=== PATIENT | male | born 1980 | race Caucasian/White ===

== ENCOUNTER 2023-05-19 20:55 | Outpatient (OUT) | payer BC, SELFPAY | END 2023-05-19 20:56 | disposition home or self-care (01) | LOC: SLEEP 20:56 | PROVIDERS: PCP Psychiatry & Neurology Neurology; Visit Provider Psychiatry & Neurology Neurology | DX: G47.33 Obstructive sleep apnea (adult) (pediatric) (principal); G47.11 Idiopathic hypersomnia with long sleep time | CPT/HCPCS: 95810 ==

== ENCOUNTER 2023-06-23 20:51 | Outpatient (OUT) | payer BC, SELFPAY | END 2023-06-23 20:52 | disposition home or self-care (01) | LOC: SLEEP 20:51 | PROVIDERS: PCP Psychiatry & Neurology Neurology; Visit Provider Psychiatry & Neurology Neurology | DX: G47.33 Obstructive sleep apnea (adult) (pediatric) (principal); G47.11 Idiopathic hypersomnia with long sleep time | CPT/HCPCS: 95811 ==

== ENCOUNTER 2024-07-16 10:22 | Outpatient (OUT) | payer BC, SELFPAY ==
[2024-07-16 11:54] LABS: Alanine Aminotransferase 40 U/L (16-63); Aspartate Amino Transferase 18 U/L (15-37); Chol HDL Ratio 3.3; Cholesterol 181 mg/dL (<=200); HDL Cholesterol 55 mg/dL (40-60); LDL Cholesterol Calculated 114.2 mg/dL; Triglycerides 59 mg/dL (<=150); VLDL CHOLESTEROL 11.8 mg/dL
== END 2024-07-16 10:23 | disposition home or self-care (01) ==
LOC: LAB 10:23
PROVIDERS: PCP Psychiatry & Neurology Neurology; Visit Provider Internal Medicine Cardiovascular Disease
DX: Z00.00 Encounter for general adult medical examination without abnormal findings (principal)
CPT/HCPCS: 36415; 80061; 84450; 84460

== ENCOUNTER 2025-07-01 11:47 | Outpatient (OUT) | payer BC, SELFPAY ==
--- OUTSIDE RECORDS SUMMARY | 2025-07-01 11:50 | XMS_ITS | Clinical Summary ---
Author Organization [facility] Address [address] [place] [address] Care Team Providers Care Telecommunication Equipment Repairer Name Role Phone Shaikh KALEIGH Russell Primary Care Provider Allergies No known active allergies Medications dilTIAZem CD (Cardizem CD) 120 mg 24 hr capsuleIndications:P aroxysmal supraventricular tachycardia TAKE 1 CAPSULE BY MOUTH EVERY DAY DIRECTED 90 capsule 2 5 Active Active Problems Problem Noted Date Diagnosed Date Hyperlipidemia 07/09/2024 Essential hypertension 07/09/2024 Inadequate sleep hygiene 03/15/2024 Sleep deprivation 03/15/2024 Snoring 03/15/2024 Hypersomnia 03/12/2024 CHRISTOPHER (obstructive sleep apnea) 03/12/2024 PLMD (periodic limb movement disorder) 4 Unspecified atrial flutter 03/12/2024 Palpitations Assessment & Plan (10/18/2022 9:27 AM EST): -per event monitor he had possible x1 event of a-flutter -reviewing the results it did appear likely that it could be a-flutter vs atrial tachycardia -[id number] - 0 , he opted not to start AC despite discussing risks of stroke knowing he had possible arrhythmia -he is agreeable to restarting toprol XL 25mg daily -he will let us know if he would like an implantable loop -I will have him follow up with dr. perkins in 3 month to discuss loop vs EP study Family History Medical History Relation Name Comments Heart attack Father Relation Name Status Comments Father Social History Tobacco Use Types Packs/Day Years Used Date Smoking Tobacco: Never Smokeless Tobacco: Never Tobacco Cessation:Counseling Given: Not Answered [place] Safety & Environment Answer Date Rec orded Fear of Current or Ex-Partner Not on file Emotionally Abused Not on file 12/04/2023 Physically Abused Not on file 12/04/2023 Sexually Abused Not on file 12/04/2023 Physically or Sexually Abused Not on file Sex and Gender Information Value Date Recorded Sex Assigned at Male 06/16/2025 1:18 PM EDT Legal Sex Male 9:50 PM EDT Gender Identity Male 06/16/2025 1:18 PM EDT Sexual Orientation Heterosexual or Straight 01/2025 1:18 PM EDT Last Filed Vital Signs Vital Sign Reading Time Taken Comments Blood Pressure 122/78 07/09/2024 1:24 PM EDT Pulse 58 07/09/2024 1:24 PM EDT Temperature - - Respiratory Rate - - Oxygen Saturation 94% 07/09/2024 1:24 PM EDT Inhaled Oxygen Concentration - - Weight 80.3 kg (177 lb) 07/09/2024 1:24 PM EDT Height 165.1 cm (5' 5 ) 07/09/2024 1:24 PM EDT Body Mass Index 29.45 07/09/2024 1:24 PM EDT Plan of Treatment Upcoming Encounters Date Type Department Care Team (Late st Contact Info) Description 07/07/2025 2:00 PM EDT Office Visit [facility] [address] [place] [address] Shyanne Ward MD [address] [place] [address] Health Maintenance Due Date Last Done Comments Depression Screening 1993 Varicella Vaccines (1 of 2 - 13+ 2-dose series) 1994 Hepatitis B Vaccines (1 of 3 - 19+ 3-dose series) 2000 Adult Tetanus 2003 Influenza Vaccine (#1) 2025 Zoster Vaccines (1 of 2) 2031 HIB Vaccines Aged Out No longer eligi ble based on patient's age to complete this topic HPV Vaccines Aged Out No longer eligi ble based on patient's age to complete this topic IPV Vaccines Aged Out No longer eligi ble based on patient's age to complete this topic Meningococcal B Vaccine Aged Out No l onger eligible based on patient's age to complete this topic Meningococcal Vaccine Aged Out No milena ayde eligible based on patient's age to complete this topic Pneumococcal Vaccine: Pediat rics (0 to 5 Years) and At-Risk Patients (6 to 64 Years) Aged Out No longer eligible b ased on patient's age to complete this topic Rotavirus Vaccines Aged Out No longer eligible based on patient's age to complete this topic Care Teams Telecommunication Equipment Repairer Relationship Specialty Start Date End Date Shaikh Russell MD PCP - General Family Medicine 10/09/22
--- OUTSIDE RECORDS SUMMARY | 2025-07-01 11:52 | XMS_ITS | CCD ---
Author Organization [facility]iniSy[facility] Care Team Providers Care Allergy And Immunology Specialist Name Role Phone GRACE ROQUE Admitting Unavailable FAWWAD, CALLEJAS H Primary Care Unavailable JUDEGRACE Tomlinson Attending Unavailable JUDELENINGRACE Consulting Unavailable FAWWAD, CALLEJAS H Primary Care Unavailable FAWWAD, CALLEJAS H Admitting Unavailable FAWWAD, CALLEJAS H Attending Unavailable FAWWAD, CALLEJAS H Consulting Unavailable FAWWAD, CALLEJAS H Primary Care Unavailable FAWWAD, CALLEJAS H Admitting Unavailable FAWWAD, H Attending Unavailable FAWWAD, CALLEJAS H Consulting Unavailable FAWWAD, CALLEJAS H Primary Care Unavailable FAWWAD, CALLEJAS H Admitting Unavailable FAWWAD, CALLEJAS H Attending Unavailable FAWWAD, CALLEJAS H Primary Care Unavailable FAWWAD, CALLEJAS H Admitting Unavailable FAWWAD, CALLEJAS H Attending Unavailable FAWWAD, CALLEJAS H Consulting Unavailable Fawwad Shaikh FARRIS Primary Care Provider OVI FLORES Attending Unavailable JOSE MAK Attending Unavailable SOLA WARD Attending Unavailable TERRY GILMORE Attending Unavailable TERRY GILMORE Attending Unavailable Medications Current Medications Medication Drug Class(es) Dates Sig (Normalized) Sig (Original) atorvastatin 40 mg oral tablet (4 sources) HMG-CoA Reductase Inhibitor Start: 05-30-2023 End: 09-06-2024 take 1 tablet by mouth at bedtime atorvastatin (Lipitor) 40 MG tablet Take 40 mg by mouth at bedtime 05/30/2023 09/06/2024 Discontinued (Therapy completed) dilTIAZem (5 sources) Calcium Channel Tricia Start: 01-31-2024 Diltiazem Hcl Active MG PO January 31, 2024 12:00am take 1 capsule by mo uth once daily, then take 1 capsule by mouth every twenty-four hours dilTIAZem CD (Cardizem CD) 120 MG 24 hr capsule Take 120 mg by mouth Daily Active 24 hr metoprolol succinate 25 mg extended release oral tablet (4 sources) beta-Adrenergic Tricia Start: 05-30-2023 End: 09-06-2024 take 1 tablet by mouth once daily in the morning metoprolol succinate XL (Toprol-XL) 25 MG 24 hr tablet TAKE 1 TABLET BY MOUTH ONCE DAILY IN THE MORNING (do not crush or CHEW) 05/30/2023 09/06/2024 Discontinued (Therapy completed) Problems Active Problems Problem Classification Problem Date Documented Date Episodic/Chronic Cardiac dysrhythmias (6 sources) Atrial flutter; Translations: [Unspecified atrial flutter] Onset: 03-12-2024 03-12-2024 Chronic Disorders of lipid metabolism (6 sources) Mixed hyperlipidemia; Translations: [Hyperlipidemia, unspecified] Onset: 07-27-2022 Chronic Essential hypertension (2 sources) Essential (primary) hypertension; Translations: [Essential (primary) hypertension] Onset: 07-09-2024 Chronic Other lower respiratory disease (6 sources) Snoring; Translations: [Snoring] Onset: 03-15-2024 03-15-2024 Episodic Residual codes; unclassified (6 sources) Obstructive sleep apnea syndrome; Translations: [Obstructive sleep apnea (adult) (pediatric)] Onset: 03-12-2024 03-12-2024 Chronic Residual codes; unclassified (6 sources) Hypersomnia; Translations: [Hypersomnia, unspecified] Onset: 03-12-2024 03-12-2024 Chronic Residual codes; unclassified (6 sources) Periodic limb movement disorder; Translations: [Periodic limb movement disorder] Onset: 03-12-2024 03-12-2024 Chronic Residual codes; unclassified (6 sources) Inadequate sleep hygiene; Translations: [Inadequate sleep hygiene] Onset: 03-15-2024 03-15-2024 Episodic Unclassified (1 source) Supraventricular tachycardia, unspecified; Translations: [Supraventricular tachycardia, unspecified] Onset: 08-12-2023 Past or Other Problems Problem Classification Problem Date Documented Date Episodic/Chronic Cardiac dysrhythmias (6 sources) Palpitations; Translations: [PALPITATIONS] Onset: 12-18-2021 Episodic Diabetes mellitus without complication (4 sources) Hyperglycemia, unspecified; Translations: [HYPERGLYCEMIA UNSPECIFIED] Onset: 09-10-2021 Episodic Other lower respiratory disease (4 sources) Dyspnea, unspecified; Translations: [DYSPNEA UNSPECIFIED] Onset: 03-25-2022 Episodic Other screening for suspected conditions (not mental disorders or infectious disease) (1 source) Encounter for screening for lipoid disorders; Translations: [ENC SCREENING FOR LIPOID DISORDERS] Onset: 09-15-2021 Episodic Residual codes; unclassified (4 sources) Sleep deprivation; Translations: [Sleep deprivation] Onset: 03-15-2024 03-15-2024 Episodic Unclassified (1 source) Supraventricular tachycardia, unspecified; Translations: [Supraventricular tachycardia, unspecified] Onset: 08-12-2023 Results Test Name Value Interpretation Reference Range Facility 36on 08-05-2024 36 Regarding lipid pane l from 07/16/2024: MD Myesha Andrews MA LDL is mildly elevated but he has good HDL leg, I recommend to follow a better low-fat diet. I do not think he needs medication at this point. It is recommended to repeat fasting lipids in about 3 to 4 months. Spoke with patient and informed him of message per Dr. Ward. He will have repeat labs in 3-4 months. Order faxed to [facility] AND mailed to patient. Normal [facility] ALL LIPID PROFILE (FASTING)o n 07-16-2024 CHOL HDL RATIO 3.3 [facility] Comment on above: 3.3 - 4.4 LOW RISK 4.4 - 7.1 AVERAGE RISK 7.1 - 11.0 MODERATE RISK >11.0 HIGH RISK Cholesterol [Mass/Vol] 181 mg/dL NINF - 200 mg/dL [facility] Cholesterol in HDL [Mass/Vol] 55 mg/dL 40 - 60 mg/dL [facility] Healthcare Comment on above: > or =60 mg/dl - LOW CARDIOVASCULAR RISK <40 mg/dl - HIGH CARDIOVASCULAR RISK Magnesium [Mass/Vol] 114.2 mg/dL [facility] Comment on above: <100 mg/dl OPTIMAL 100-129 mg/dl NEAR OR ABOVE OPTIMAL 130-159 mg/dl BORDERLINE HIGH 160-189 mg/dl HIGH >190 mg/dl VERY HIGH Magnesium [Mass/Vol] 11.8 mg/dL [facility] Triglyceride [Mass/Vol] 59 mg/dL NINF - 150 mg/dL [facility] Lauryn 07-16-2024 ALT [Catalytic activity/Vol] 40 U/L 16 - 63 U/L [facility] Aleida 07-16-2024 AST [Catalytic activity/Vol] 18 U/L 15 - 37 U/L [facility] No Panel Informationon 07-16 [facility] Healthcare Office Visiton 07-09-2024 Follow-up visit [id number] Cheng Santoyo 1980 M [facility] Provider Department Center 07/09/2024 [id number] WARD EBENEZER [facility] Family History Problem Relation Age of Onset Heart attack Father Family Status - Relation Status Age at Father Level of Service:59820 [place] OFFICE/OUTPATIENT ESTABLISHED MOD MDM 30 MIN Reason for Visit and Comments: Hyperlipidemia [182] - Pt is here for a six month follow up. Pt denies chest pain, palpatations, sob. Normal [facility] Orders Onlyon 07-09-2024 Orders Only [id number] Cheng Santoyo 1980 [facility] Provider Department Center 07/09/2024 895-GOGO GRIMM EBENEZER [facility] Family History Problem Relation Age of Onset Heart attack Father Family Status - Relation Status Age at Father Normal [facility] Office Visiton 01-08-2024 Follow-up visit [id number] Cheng Santoyo 1980 [facility] Provider Department Center 01/08/2024 166-JOSE MAK EBENEZER [facility] Family History Problem Relation Age of Onset Heart attack Father Family Status - Relation Status Age at Father Level of Service:90080 [place] OFFICE/OUTPATIENT ESTABLISHED LOW MDM 20 MIN Normal [facility] Office Visiton 08-12-2023 Follow-up visit [id number] Cheng Santoyo 1980 M Date Provider Department Center 08/12/2023 1596-[id number] FLORES CARD [facility] Family History Problem Relation Age of Onset Heart attack Father Family Status - Relation Status Age at Father Level of Service:00623 LA OFFICE/OUTPATIENT ESTABLISHED MOD MDM 30-39 MIN Normal [facility] LIPID PROFILEon 07-27-2022 CHOL-HDL RATIO NORM SEE BELOW Normal [facility] Comment on above: Result Comment: 3.3 - 4.4 LOW RISK 4.4 - 7.1 AVERAGE RISK 7.1 - 11.0 MODERATE RISK >11.0 HIGH RISK Performed By: #### L IVER, LIPID #### [facility] [address] [address] [address] Adam Bragg Cholesterol [Mass/Vol] 109 mg/dL Normal <=200 [facility] Comment on above: Performed By: #### L IVER, LIPID #### [facility] [address] [address] [address] Adam Bragg Cholesterol in HDL [Mass/Vol] 46 mg/dL Normal 40-60 [facility] Comment on above: Performed By: #### L IVER, LIPID #### [facility] [address] [address] [address] Adam Bragg Cholesterol in LDL [Mass/Vol] 50.2 mg/dL Normal [facility] Comment on above: Performed By: #### L IVER, LIPID #### [facility] [address] [address] [address] Adam Bragg Cholesterol.total/Ch olesterol in HDL [Mass ratio] 2.4 {ratio} Normal [facility] Comment on above: Performed By: #### L IVER, LIPID #### [facility] [address] [address] [address] Adam Bragg HDL NORMAL > or = 60 mg/dl - LO W CARDIOVASCULAR RISK <40 mg/dl - HIGH CARDIOVASCULAR RISK Normal [facility] Comment on above: Performed By: #### L IVER, LIPID #### [facility] [address] [address] [address] Adam Bragg LDL CALC NORMAL SEE BELOW Normal [facility] Comment on above: Result Comment: <100 mg/dl OPTIMAL 100 - 129 mg/dl NEAR OR ABOVE OPTIMAL 130 - 159 mg/dl BORDERLINE HIGH 160 - 189 mg/dl HIGH >190 mg/dl VERY HIGH Performed By: #### L IVER, LIPID #### [facility] [address] [address] [address] Adam Bragg Triglyceride [Mass/Vol] 64 mg/dL Normal <=150 [facility] Comment on above: Performed By: #### L IVER, LIPID #### [facility] [address] [address] [address] Adam Bragg VLDL CALC 12.8 mg/dL Normal [facility] Comment on above: Performed By: #### L IVER, LIPID #### [facility] [address] [address] [address] Adam Bragg LIVER PROFILEon 07-27-2022 Albumin [Mass/Vol] 4.0 g/dL Normal 3.4-5.0 [facility] Comment on above: Performed By: #### L IVER, LIPID #### [facility] [address] [place] [address] Dr. Adam Bragg Albumin/Globulin [Mass ratio] 1.1 {ratio} Normal [facility] Comment on above: Performed By: #### L IVER, LIPID #### [facility] [address] [place] [address] Dr. Adam Bragg ALP [Catalytic activity/Vol] 50 U/L Normal 46-116 [facility] Comment on above: Performed By: #### L IVER, LIPID #### [facility] [address] [place] [address] Dr. Adam Bragg ALT [Catalytic activity/Vol] 41 U/L Normal 16-63 [facility] Comment on above: Performed By: #### L IVER, LIPID #### [facility] [address] [address] [address] Adam Bragg AST [Catalytic activity/Vol] 16 U/L Normal 15-37 [facility] Comment on above: Performed By: #### L IVER, LIPID #### [facility] [address] [place] [address] Dr. Adam Bragg BILI, CONJUGATED 0.1 mg/dL Normal 0.0-0.2 [facility] Comment on above: Performed By: #### L IVER, LIPID #### [facility] [address], [place] [address] Dr. Adam Bragg Bilirubin [Mass/Vol] 0.5 mg/dL Normal 0.2-1.0 [facility] Comment on above: Performed By: #### L IVER, LIPID #### [facility] [address], [place] [address] Dr. Adam Bragg Globulin (S) [Mass/Vol] 3.5 g/dL Normal [facility] Comment on above: Performed By: #### L IVER, LIPID #### [facility] [address], [place] [address] Dr. Adam Bragg Protein [Mass/Vol] 7.5 g/dL Normal 6.4-8.2 [facility] Comment on above: Performed By: #### L IVER, LIPID #### [facility] [address] [address] [address] Adam Bragg ECHOCARDIO M/2D COMPLETEon 0 12-18-2021 ECHOCARDIO M/2D COMPLETE Patient: CHENG SANTOYO Exam Date: 12/18/2021 : 1980 Gender:M Ordering : SHAIKH Lauren RUSSELL . Admission #: [id number] Family : Order #: [id number] CLICK HERE TO VIEW EXAM ECHOCARDIOGRAM REPORT PROCEDURE: CARDIO PULMONARY ECHOCARDIO M/2D COMP INDICATIONS: Intermittent palpitations, S/P Covid 08/02 COMPARISON: None. DESCRIPTION: COMPLETE ECHOCARDIOGRAM Real-time transthoracic echocardiography with 2D, M-mode, spectral and color flow Doppler performed. QUALITY: Technical quality was good. LEFT VENTRICLE: Normal chamber size. Mild concentric left ventricular hypertrophy. Systolic function is normal. Left ventricular ejection fraction is 55%. LV EF: Normal left ventricular ejection fraction, (55%). DIASTOLIC: Normal diastolic function. ATRIAL SEPTUM: LEFT ATRIUM: Normal chamber size. RIGHT ATRIUM: Mild dilatation. RIGHT VENTRICLE: Normal chamber size. Normal right ventricular systolic function. TRICUSPID VALVE: Normal mobility and thickness. No stenosis with trivial regurgitation. No evidence of pulmonary hypertension. RVSP 15 mmHg. MITRAL VALVE: Normal mobility and thickness. No mitral valve prolapse. No evidence of mitral valve stenosis. There is no mitral annular calcification. Trivial mitral regurgitation. AORTIC VALVE: Normal trileaflet appearance. No visible sclerosis. Normal leaflet mobility. No evidence of aortic valve stenosis. No aortic regurgitation. AORTIC ROOT: Normal diameter and appearance. Normal size ascending aorta (3.0 cm). PULMONIC VALVE: Normal thickness and mobility. No stenosis. No regurgitation. PERICARDIUM: No evidence of pericardial effusion. IVC: Collapses with inspirations. Normal size. PLEURA: CONCLUSION: 1. Mild left ventricular concentric hypertrophy with normal left ventricular systolic function. LVEF is 55%. 2. Normal diastolic function. 3. Normal right ventricular systolic function. 4. No significant valvular dysfunction. 5. Normal right sided pressures. 6. No pericardial effusion. Adult Echocardiography Procedure Report Left Ventricle LVEDD (3.7 - 5.6 cm): 4.47 cm LVESD (2.2 - 4.0 cm): 3.45 cm LVIVS thickness (0.6 - 1.2 cm): 1.20 cm LVPW thickness (0.5 - 1.0 cm): 1.15 cm e': 9.65 cm/s E - e': 5.30 LVOT Area (cm2): 3.80 cm2 LVOT Diameter 2.20 cm Left Ventricular Ejection Fraction: 55 % Left Atrium LA Volume Index (2D A2C): 24.70 ml/m2 Left Atrium Systolic Dimension: 3.50 cm Left Atrium Systolic Area(A2C): 17.40 cm2 Left Atrium Systolic Area(A4C): 15.50 cm2 Left Atrium Systolic Volume(A2C): 76027 mm3 Left Atrium Systolic Volume(A4C): 68186 mm3 Mitral Valve MV E to A Ratio: 0.90 Deceleration Lassen: 2360 mm/s2 Mitral Valve A-Wave Peak Velocity: 59.70 cm/s Mitral Valve E-Wave Peak Velocity: 50.80 cm/s Right Ventricle RV Internal Diastolic Dimension: 3.84 cm Aorta AO Root Diam: 2.80 cm Aortic Valve AoV Area (Peak Crispin): 3.27 cm2 Peak Velocity(Antegrade Flow): 105.00 cm/s Peak Gradient(Antegrade Flow): 4 mm[Hg] Tricuspid Valve Peak Velocity (Regurgitant Flow): 160.00 cm/s Pulmonic Valve Peak Velocity: 115.00 cm/s Peak Gradient: 5 mm[Hg] Right Atrium Dictated by: Evangelista Weaver M.D. on 12/18/2021 at 10:03 Approved by: Evangelista Weaver M.D. on 12/18/2021 at 10:09 Normal [facility] GLYCOHEMOGLOBIN A1Con 2020 ADA RECOMMENDATION ADA THERAPEUTIC TARGET 6.0 - 7.0 ACTION SUGGESTED > 7.0 Normal [facility] Comment on above: Performed By: #### A 1C #### [facility] [address] [address] [address] Adam Bragg Glucose [Mass/Vol] 108 mg/dL Normal [facility] Comment on above: Performed By: #### A 1C #### [facility] [address] [address] [address] Adam Bragg HbA1c (Bld) [Mass fraction] 5.4 % Normal <=6.0 [facility] Comment on above: Performed By: #### A 1C #### [facility] [address] [place] [address] Dr. Adam Bragg LIPID PROFILEon 09-10-2021 CHOL-HDL RATIO NORM SEE BELOW Normal [facility] Comment on above: Result Comment: 3.3 - 4.4 LOW RISK 4.4 - 7.1 AVERAGE RISK 7.1 - 11.0 MODERATE RISK >11.0 HIGH RISK Performed By: #### L IPID #### [facility] [address] [place] [address] Dr. Adam Bragg Cholesterol [Mass/Vol] 203 mg/dL Critically high <=200 [facility] Comment on above: Performed By: #### L IPID #### [facility] [address] [place] [address] Dr. Adam Bragg Cholesterol in HDL [Mass/Vol] 54 mg/dL Normal [facility] Comment on above: Performed By: #### L IPID #### [facility] [address] [place] [address] Dr. Adam Bragg Cholesterol in LDL [Mass/Vol] 130.2 mg/dL Normal [facility] Comment on above: Performed By: #### L IPID #### [facility] [address] [place] [address] Dr. Adam Bragg Cholesterol.total/Ch olesterol in HDL [Mass ratio] 3.8 {ratio} Normal [facility] Comment on above: Performed By: #### L IPID #### [facility] [address] [address] [address] Adam Bragg HDL NORMAL > or = 60 mg/dl - LO W CARDIOVASCULAR RISK <40 mg/dl - HIGH CARDIOVASCULAR RISK Normal [facility] Comment on above: Performed By: #### L IPID #### [facility] [address] [address] [address] Adam Bragg LDL CALC NORMAL SEE BELOW Normal [facility] Comment on above: Result Comment: <100 mg/dl OPTIMAL 100 - 129 mg/dl NEAR OR ABOVE OPTIMAL 130 - 159 mg/dl BORDERLINE HIGH 160 - 189 mg/dl HIGH >190 mg/dl VERY HIGH Performed By: #### L IPID #### [facility] [address] [address] [address] Adam Bragg Triglyceride [Mass/Vol] 94 mg/dL Normal <=150 [facility] Comment on above: Performed By: #### L IPID #### [facility] [address] [address] [address] Adam Bragg VLDL CALC 18.8 mg/dL Normal [facility] Comment on above: Performed By: #### L IPID #### [facility] [address] [address] [address] Adam Bragg Vital Signs Date Time Vital Sign Value Performing Clinician Facility 09-06-2024 09:39-0500 Body height 167.6 cm Terry Gilmore FABRIC AWNING REPAIRER Work Phone: [facility] 09-06-2024 09:39-0500 Body mass index (BMI) [Ratio] 29.38 kg/m2 Terry Gilmore FABRIC AWNING REPAIRER Work Phone: [facility] 09-06-2024 09:39-0500 Body weight 82.56 kg Terry Gilmore FABRIC AWNING REPAIRER Work Phone: [facility] 09-06-2024 09:39-0500 Diastolic blood pressure 71 mm[Hg] Terry Gilmore FABRIC AWNING REPAIRER Work Phone: [facility] 09-06-2024 09:39-0500 Heart rate 83 /min Terry Gilmore FABRIC AWNING REPAIRER Work Phone: [facility] 09-06-2024 09:39-0500 Systolic blood pressure 129 mm[Hg] Terry Gilmore FABRIC AWNING REPAIRER Work Phone: [facility] 01-31-2024 14:32-0400 Body height 167.64 cm [facility] 01-31-2024 14:32-0400 Body mass index (BMI) [Ratio] 29.8 kg/m2 [facility] 01-31-2024 14:32-0400 Body temperature 98.3 [degF] [facility] 01-31-2024 14:32-0400 Body weight 83.97 kg [facility] 01-31-2024 14:32-0400 Heart rate 78 /min [facility] 01-31-2024 14:32-0400 Respiratory rate 18 /min [facility] 01-31-2024 14:32-0400 SaO2% (BldA) [Mass fraction] 98 % [facility] Encounters Encounter Date Encounter Type Care Provider Facility Start: 09-06-2024 End: 09-06-2024 Bamboo flowsheet Terry Gilmore FABRIC AWNING REPAIRER Work Phone: [facility] Start: 09-06-2024 End: 09-06-2024 Bamboo flowsheet Terry Gilmore FABRIC AWNING REPAIRER Work Phone: [facility] Start: 09-06-2024 End: 09-06-2024 Office outpatient visit 25 minutes Terry Gilmore FABRIC AWNING REPAIRER Work Phone: [facility] Comment on above: CHRISTOPHER (obstructive sle ep apnea) (Primary Dx); Hypersomnia; PLMD (periodic limb movement disorder); Inadequate sleep hygiene; Snoring; Atrial flutter, unspecified type (CMS/HCC) Start: 09-06-2024 End: 09-06-2024 ambulatory TERRY GILMORE Not Available Start: 07-16-2024 End: 07-16-2024 Clinisync Result Encounter Generic External Data Provider [facility] External Department Unsolicited Start: 07-16-2024 End: 07-16-2024 Clinisync Result Encounter Generic External Data Provider [facility] External Department Unsolicited Start: 07-09-2024 End: 07-09-2024 ambulatory SOLA WARD [facility] Start: 03-15-2024 End: 03-15-2024 ambulatory TERRY SONIMARAH Not Available Start: 01-31-2024 End: 01-31-2024 ambulatory [facility] Work Phone: Start: 01-31-2024 End: 01-31-2024 Patient encounter procedure [facility] Work Phone: Start: 01-08-2024 End: 01-08-2024 ambulatory JOSE [facility] Start: 08-12-2023 End: 08-12-2023 ambulatory OVI [facility] Start: 07-27-2022 End: 07-28-2022 ambulatory GRACE ROQUE Facility:[facility] Start: 03-25-2022 End: 03-26-2022 ambulatory CALLEJASCHASE BAYAndrew Facility:[facility] Start: 12-18-2021 End: 12-19-2021 ambulatory CALLEJASCHASE ROWEBASSAMD Facility:[facility] Start: 09-20-2021 End: 09-21-2021 ambulatory CALLEJASCHASE KANGMELLY Facility:[facility] Start: 09-10-2021 End: 09-11-2021 ambulatory CALLEJASCHASE BAYAndrew Facility:[facility] Procedures Date Procedure Procedure Detail Performing Clinician Start: 07-16-2024 ALL LIPID PROFILE (FASTING) Generic External Data Provider Start: 07-16-2024 [facility] ALT Generic Ex ternal Data Provider Start: 07-16-2024 [facility] AST Generic Ex ternal Data Provider Plan of Treatment Date Care Activity Detail Author Start: 09-05-2025 End: 09-05-2025 Patient encounter procedure 09/05/2025 9:40 AM EST Office Visit [facility] [address] [place] [phone] Terry Gilmore, MAURI [address] [place] [facility] [facility] Start: 09-06-2024 End: 09-06-2024 Patient encounter procedure [facility] Comment on above: Arrived Start: 06-13-2024 Influenza vaccination Influenz a Vaccine (#1) [facility] Payers Date Payer Category Payer [facility] Mem er [id number] 2022 Unknown [id number] 2019 Unknown 1980 Unknown [id number] 1980 Unknown [id number] 1980 Unknown [id number] [id number] 1980 Unknown [id number] [id number] 1980 Unknown [id number] 593 1980 Unknown [id number] [id number] 1980 Unknown [id number] 1259 1959 Unknown [id number] 1958 Unknown [id number] Social History Date Type Detail Facility Start: 01-31-2024 Tobacco smoking stat [facility] Never smoked tobacco (finding) [facility] Start: 1980 Sex Assigned At Male F [facility] [facility] Start: 03-15-2024 Tobacco smoking stat [facility] Ex-smoker [facility] History of tobacco use Current smoker [facility] History of tobacco use Cigarette Smoker [facility] Start: 03-15-2024 Tobacco use and exposure Smokeless tobacco non-user [facility] Start: 03-15-2024 End: 09-06-2024 Alcoholic beverage intake Lifetime non-drinker (finding) [facility] Start: 03-15-2024 End: 09-06-2024 History of Social function [facility] Start: 03-15-2024 End: 09-06-2024 Tobacco use panel [facility] Start: 03-12-2024 Alcohol Comment caffeine: 1-2 cups per day [facility] Start: 1980 Sex assigned at Not on file [facility] History of Present illness Narrative 09-06-2024 Terry Gilmore NP - 09/06/2024 9:40 AM EST Note Date & Type Note Facility 09-06-2024 History of Presen t illness Narrative Images from the original note were not included. Chief Complaint Patient presents with Sleep Apnea hypersomnia Subjective Cheng states he is doing well. He is using his PAP machine. He denies any issues with his machine. He averages about 6-8 hours of sleep per night. He does not think he wakes up in the middle of the night. He thinks he sleeps better without the machine. He does not always feel rested. There are some mornings where he does feel rested. Past Medical History: Diagnosis Date Hyperlipidemia (CMS/HCC) Hypertension (CMS/HCC) History reviewed. No pertinent surgical history. Family History Problem Relation Name Age of Onset Cancer Father Coronary artery disease Father Hyperlipidemia Father Hypertension Father Stroke Other Social History Tobacco Use Smoking status: Former Types: Cigarettes Smokeless tobacco: Never Substance Use Topics Alcohol use: Never Comment: caffeine: 1-2 cups per day Allergies: Patient has no known allergies. General: No fever or chills HEENT: No nasal congestion or runny nose Pulmonary: No shortness of breath or cough Cardiovascular: No chest pain or palpitations GI: No nausea or vomiting : No dysuria or hematuria Musculoskeletal: No new aches or pains or muscle weakness Infectious: no recurrent fevers or infections Dermatologic: No rashes or skin lesions Neurologic: No new headaches or dizziness Vitals: 09/06/24 0939 BP: 129/71 Pulse: 83 Body mass index is 29.38 kg/m . weight: 182 lb Neurologic exam: General: Normal body habitus, cooperative, pleasant Mental status: Awake, alert to person, place and time. Recent and remote memory are intact. Attention and concentration are normal. Fund of knowledge is appropriate for level of education. HEENT: NC/AT Cranial nerves: CN II: Visual kemp full to confrontation. No loss of vision CN III, IV, : pupils equal round and reactive to light. Extraocular movements intact. No ptosis present. CN V: Facial sensation is normal. CN VII: Full and symmetric facial movement. CN VIII: Hearing is normal CN IX and X: Palate elevates symmetrically. CN XI: Shoulder shrug is normal bilaterally. CN XII: Tongue is midline without atrophy or fasciculation. Speech: Clear and fluent no aphasia or dysarthria Pronator drift: Negative bilateral upper extremity Coordination: Intact, no signs of dysmetria Good finger to nose and rapid alternating movements Sensory: Sensation is intact to light, temperature and vibratory touch throughout four extremities. Motor: LUE 5/5 RUE 5/5 LLE 5/5 RLE 5/5 Tone: Physiologic, no tremor, bradykinesia or rigidity DTR: Bilateral Biceps 2/4 Bilateral BR 2/4 Bilateral Patellar 2/4 No spasticity Gait: Normal to casual gait Romberg's Negative Review and summary of old records: Assessment/Plan There are no diagnoses linked to this encounter. 44-year-old male with a mild obstructive sleep apnea with an AHI of 10 and oxygen desaturation down to 86%. He is now on AutoPAP 6-10 cmH2O and that is working for him. HE has less daytime hypersomnolence and snoring therefore he is benefiting. He was feeling better and more rested when he was here 6 months ago. 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 He is now off for 5 months as he makes a years worth of wages in those 7 months. WE will see how he feels when he is not working and he does then go back to sleeping in the night. He should wear it to prevent events of his suspected atrial flutter. Patient did have 107 limb movements on the PSG and 169 on the titration study he and may have a periodic limb movement disorder. He denies any issues with sleep onset or maintenance. His does not tell him he moves around in bed. We will continue to monitor this. He has been trying to get more hours of sleep and should shoot for at least 7 hours of sleep. HE has improved his hygiene. He should not be driving while sleepy. . He is complaint on download ending 09/05/2024. He is using mask 97% of time greater than 4 hours, average nightly usage of 7 hours and 22 minutes and a residual AHI of 1.2. He has no issues with mask or machine other than the machine can run out of water at times and then he can not tolerate it. He does drive truck every other night and does transport it back and forth. . . . Plan Compliance download reviewed Compliance download at next visit If PLMD becomes bothersome we will go ahead and start him on something like doxepin, he declines at this time and will call in if needed and move up visit Try to get 7-8 hours of sleep every night He should not be driving if he sleepy Was counseled 6 hours of sleep or less has been associated with increased risk of stroke, cardiovascular disease and the development of dementia. The patient was counseled on proper sleep hygiene and adequate hours of sleep. The patient was counselled on the risk of stroke, [place], and sudden with CHRISTOPHER, along with the need for compliance with CPAP/BiPAP treatment. This was discussed with the patient, all questions were answered and they agreed with the treatment plan. The patient is to call with any worsening of the condition or new symptoms. Return to clinic: one year documented in this encounter [facility] Progress note 07-09-2024 Note Date & Type Note Facility 07-09-2024 Note [facility] Subjective Cheng Santoyo is a 43 y.o. year old male patient being seen for Hyperlipidemia (Pt is here for a six month follow up. Pt denies chest pain, palpatations, sob.) Patient Active Problem List Diagnosis Palpitations Hypersomnia Inadequate sleep hygiene CHRISTOPHER (obstructive sleep apnea) PLMD (periodic limb movement disorder) Sleep deprivation Snoring Unspecified atrial flutter (CMS/HCC) HPI The patient is here today for follow-up visit. The patient had palpitation 2021 and a 30-day event monitor showed 1 event suspicious for atrial flutter versus artifact. He declined loop recorder or anticoagulation. He was tried on beta-tricia initially however it caused him to have erectile dysfunction therefore he was switched to Cardizem. He never had recurrence of symptoms since then. He states that he is physically very active and he denies any chest discomfort or shortness of breath at rest or with exertion. Denies orthopnea or paroxysmal nocturnal dyspnea. He denies any palpitation. He denies dizziness or syncope or near syncope. He denies legs edema or discomfort on exertion. He denies smoking, alcohol, or illicit drugs. ROS All systems were reviewed and they were negative except for the positive findings noted above in the history Past Medical History: Diagnosis Date Hyperlipidemia Palpitations POTS (postural orthostatic tachycardia syndrome) Sinus tachycardia No past surgical history on file. Family History Problem Relation Name Age of Onset Heart attack Father Social History Tobacco Use Smoking status: Never Smokeless tobacco: Never Allergies No Known Allergies Medications Current Outpatient Medications: dilTIAZem CD (Cardizem CD) 120 mg 24 hr capsule, Take 1 capsule (120 mg) by mouth once daily as directed., Disp: 90 capsule, Rfl: 2 Objective Visit Vitals BP 122/78 Pulse 58 Ht 1.651 m (5' 5 ) Wt 80.3 kg (177 lb) SpO2 94% BMI 29.45 kg/m??? Smoking Status Never BSA 1.92 m??? Physical exam: GENERAL: alert and oriented x3, well developed, in no acute distress. HEAD: atraumatic, normocephalic. EYES: KATHY, EOMI. NECK: trachea midline, no JVD present, no carotid bruits present. CARDIAC: S1, S2 present. RRR. No murmur, rubs, or gallops. RESPIRATORY: CTAB, no increased effort of breathing, no rales, rhonchi, or wheezing. ABDOMEN: soft, nontender, nondistended. EXTREMITIES: no lower extremity edema. No rash/skin discoloration present. NEURO: strength/sensation equal and symmetric in bilateral upper and lower extremities. PSYCH: appropriate mood, affect, and judgement. Recent Labs Labs 09/10/2021 Cholesterol 203, HDL 54, LDL 130, triglyceride 94. Labs from 07/19/2021 Moderate count 8.4, hemoglobin 13, hematocrit 38.9, platelets 199 Total protein 7.8, total bilirubin 0.6, Sodium 133, potassium 3.6, glucose 117, BUN 13, creatinine 1.2, calcium 8.7, ALT 51, AST 33, albumin 3.4 Imaging and other tests EK11/15/2022 showed sinus rhythm, heart rate 63 bpm, otherwise normal EKG Echo: 12/18/2021 Stress test: 03/25/2022 Event Monitor: 30-day 05/15/2022 Holter monitor 10/01/2021 Assessment/Plan Remote history of palpitation, 30-day event monitor 2021 showed 1 event suspicious for atrial flutter versus artifact. Patient then declined any further workup such as loop recorder or anticoagulation. He is on Cardizem and no recurrence of symptoms Hypertension, well-controlled on Cardizem Hyperlipidemia, he used to be on statin and he took himself off it. Intolerance to beta-blockers causing erectile dysfunction Plan: Continue Cardizem Will obtain fasting lipids and treat if indicated I advised the patient that if he has recurrence of palpitation to notify us immediately, in that case we can give him another monitor. He was advised regarding the potential stroke with A-fib/ flutter if he is off anticoagulation. Follow-up in 1 year or sooner for needed Sola Ward MD,[facility] Progress note 01-08-2024 Note Date & Type Note Facility 01-08-2024 Note [facility] Progre ss Note Reason for visit: palpitations, questionable a-flutter 01/08/2024 Patient here for 6 mo follow up palpitations. Doing very well he says. Denies chest pain, SOB, palpitations, and lightheadedness/syncope. No recent labs or imaging. He denies any changes since last seen. He stopped taking atorvastatin on his own as he wants to avoid taking medications if possible. His metoprolol was switched to diltiazem due to ED. Since switching, this is better. Denies c/o CP, dyspnea, orthopnea, PND, LE edema, dizziness/LH, palpitations, syncope. 08/12/23: Patient here for 6-month follow-up he had event monitor placed which was indeterminate for atrial flutter and cannot be ruled out patient was recommended to be on anticoagulation was recommended loop monitor for monitoring. Patient deferred both recommendations. States he went camping recently and forgot his metoprolol, he missed 2 doses and noticed tachycardia. He then resumed his metoprolol and symptoms subsided. I again offered loop monitor to patient and DOAC and he deferred both. He has been having complaints of erectile dysfunction, and feels as though when he exerts himself he is unable to get his heart rate up such as when he exercises/walks. Discussed transitioning him to a calcium channel tricia versus beta-tricia to see if side effect subside 01/2023 HPI: Cheng Santoyo is a 43 y.o. year old with past medical history of palpitations. Previously he was diagnosed with COVID-pneumonia in 2020 and admitted at [facility] for the above. in light of his palpitations and event monitor was placed which raised the concern of atrial flutter. He has had minimal palpitations since but has been noncompliant with taking metoprolol. he was seen by [facility] nurse practitioner and he had discussed the option of EP study versus loop monitor but the patient deferred both. 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 He is on Toprol XL Holter monitor that was placed on 09/20/2021 to 09/23/2021 raise the possibility of atrial fibrillation on 07/24/2021 but there was significant artifact that made the diagnosis difficult. Event monitor that was placed on 05/15/2022 to 06/13/2022 placed a concern of possible atrial flutter that was noted on 05/27/2022 at 3:39 PM Review of Systems Constitutional: Positive for malaise/fatigue. Respiratory: Positive for cough. All other systems reviewed and are negative. PMH: Past Medical History: Diagnosis Date Hyperlipidemia Palpitations POTS (postural orthostatic tachycardia syndrome) Sinus tachycardia PSH: No past surgical history on file. FMHx: Father - [place] x2 with hx of stent - age 40-50s, HLD, at age 62 from cancer Maternal grandmother - a.fib Cousin - bypass surgery SH: Social Determinants of Health Tobacco Use: Low Risk (08/12/2023) Patient History Smoking Tobacco Use: Never Smokeless Tobacco Use: Never Passive Exposure: Not on file Alcohol Use: Not on file Financial Resource Strain: Not on file Food Insecurity: Not on file Transportation Needs: Not on file Physical Activity: Not on file Stress: Not on file Social Connections: Not on file Intimate Partner Violence: Unknown (12/04/2023) [facility] Safety & Environment Fear of Current or Ex-Partner: Not on file Emotionally Abused: Not on file Physically Abused: Not on file Sexually Abused: Not on file Physically or Sexually Abused: Not on file Depression: Not on file Housing Stability: Not on file Utilities: Not on file Allergies: No Known Allergies Weight: No results found for: PTWEIGHT Meds: Current Outpatient Medications on File Prior to Visit Medication Sig Dispense Refill dilTIAZem CD (Cardizem CD) 120 mg 24 hr capsule Take 1 capsule (120 mg) by mouth in the morning. 30 capsule 11 atorvastatin (Lipitor) 40 mg tablet Take 1 tablet (40 mg) by mouth at bedtime. (Patient not taking: Reported on 08/12/2023) 90 tablet 3 No current facility-administered medications on file prior to visit. Physical Exam: Constitutional General Appearance: well-nourished, well-developed, appears stated age Level of Distress: comfortable Psychiatric Mental Status: alert, normal affect Orientation: oriented to time, place, and person Insight: good judgement Eyes Lids and Conjunctivae: non-injected, no xanthelasma ENMT Ears: no lesions on external ear Nose: no lesions on external nose Oropharynx: no cyanosis, no pallor Neck Neck: supple, trachea midline Carotid Arteries: bilateral normal upstroke, no bruits Jugular Veins: normal jugular venous pressure Thyroid: not enlarged Lungs Respiratory Effort: unlabored Chest Exam: normal curvature, no thoracic deformity Auscultation: clear, no wheezing, no rales, no rhonchi Cardiovascular Rate And Rhythm: regular Heart Sounds: normal S1, normal (more content not included)... [facility] Progress note 01-08-2024 Note Date & Type Note Facility 01-08-2024 Note Patient here for 6 m o follow up palpitations. Doing very well he says. Denies chest pain, SOB, palpitations, and lightheadedness/syncope. No recent labs or imaging. Review of Systems Constitutional: Positive for malaise/fatigue. Respiratory: Positive for cough. All other systems reviewed and are negative. [facility] Progress note 08-12-2023 Note Date & Type Note Facility 08-12-2023 Note [facility] Consul t Note Reason for visit: palpitaions, questionable a-flutter 08/12/23: Patient here for 6-month follow-up he had event monitor placed which was indeterminate for atrial flutter and cannot be ruled out patient was recommended to be on anticoagulation was recommended loop monitor for monitoring. Patient deferred both recommendations. States he went camping recently and forgot his metoprolol, he missed 2 doses and noticed tachycardia. He then resumed his metoprolol and symptoms subsided. I again offered loop monitor to patient and DOAC and he deferred both. He has been having complaints of erectile dysfunction, and feels as though when he exerts himself he is unable to get his heart rate up such as when he exercises/walks. Discussed transitioning him to a calcium channel tricia versus beta-tricia to see if side effect subside 01/2023 HPI: Cheng Santoyo is a 43 y.o. year old with past medical history of palpitations. Previously he was diagnosed with COVID-pneumonia in 2020 and admitted at [facility] for the above. in light of his palpitations and event monitor was placed which raised the concern of atrial flutter. He has had minimal palpitations since but has been noncompliant with taking metoprolol. he was seen by [facility] nurse practitioner and he had discussed the option of EP study versus loop monitor but the patient deferred both. 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 He is on Toprol XL Holter monitor that was placed on 09/20/2021 to 09/23/2021 raise the possibility of atrial fibrillation on 07/24/2021 but there was significant artifact that made the diagnosis difficult. Event monitor that was placed on 05/15/2022 to 06/13/2022 placed a concern of possible atrial flutter that was noted on 05/27/2022 at 3:39 PM Review of Systems Cardiovascular: Positive for chest pain and dyspnea on exertion. All other systems reviewed and are negative. PMH: Past Medical History: Diagnosis Date Hyperlipidemia Palpitations POTS (postural orthostatic tachycardia syndrome) Sinus tachycardia PSH: No past surgical history on file. SH: Social Determinants of Health Tobacco Use: Low Risk (10/15/2022) Patient History Smoking Tobacco Use: Never Smokeless Tobacco Use: Never Passive Exposure: Not on file Alcohol Use: Not on file Financial Resource Strain: Not on file Food Insecurity: Not on file Transportation Needs: Not on file Physical Activity: Not on file Stress: Not on file Social Connections: Not on file Intimate Partner Violence: Not on file Depression: Not on file Housing Stability: Not on file Allergies: No Known Allergies Weight: No results found for: PTWEIGHT Meds: Current Outpatient Medications on File Prior to Visit Medication Sig Dispense Refill metoprolol succinate XL (Toprol-XL) 25 mg 24 hr tablet Take 1 tablet (25 mg) by mouth in the morning. Do not crush or chew. 90 tablet 3 atorvastatin (Lipitor) 40 mg tablet Take 1 tablet (40 mg) by mouth at bedtime. (Patient not taking: Reported on 08/12/2023) 90 tablet 3 No current facility-administered medications on file prior to visit. Physical Exam: Constitutional General Appearance: well-nourished, well-developed, appears stated age Level of Distress: comfortable Psychiatric Mental Status: alert, normal affect Orientation: oriented to time, place, and person Insight: good judgement Eyes Lids and Conjunctivae: non-injected, no xanthelasma ENMT Ears: no lesions on external ear Nose: no lesions on external nose Oropharynx: no cyanosis, no pallor Neck Neck: supple, trachea midline Carotid Arteries: bilateral normal upstroke, no bruits Jugular Veins: normal jugular venous pressure Thyroid: not enlarged Lungs Respiratory Effort: unlabored Chest Exam: normal curvature, no thoracic deformity Auscultation: clear, no wheezing, no rales, no rhonchi Cardiovascular Rate And Rhythm: regular Heart Sounds: normal S1, normal s2, no gallop Systolic Murmur: not heard Diastolic Murmur: not heard Extremities: no cyanosis, no edema, no peripheral signs of emboli Peripheral Pulses Radial Pulse: normal Abdomen Inspection and Palpation: soft, non distended, no bruit, non tender Musculoskeletal Inspection: no joint swelling Neurologic Gait: normal gait Skin Inspection and Palpation: warm and dry Nails: no clubbing Labs: @LABRESULTS@ No results found for: CHOLESTEROL TOTAL, HDL, LDL CALC, LDL DIRECT, TRIGLYCERIDES, TSH, T3 TOTAL, T4 TOTAL, THYROID PEROXIDASE AB, BNP, BNP, BNP EKG: No results found for this or any previous visit (from the past 4464 hour(s)). Echo: 12/2021 Stress test: 03/2022 Coronary angiogram: @CATH@ Diagnostic Imaging: No images are attached to the encounter. Assessment and Plan: Palpitations -per event monitor he had possible x1 even (more content not included)... [facility] Progress note 08-12-2023 Note Date & Type Note Facility 08-12-2023 Note Patient here for 6 m o follow up palpitations. Saw neurology in April 2023. He has been fitted with a cpap and has used it for the past week. Has not been taking atorvastatin because statins aren't good for you . Denies chest pain and palpitations. States he feels metoprolol slows his heart down too much and he is too worn out to do what he needs to do. Review of Systems Constitutional: Positive for malaise/fatigue. Cardiovascular: Positive for dyspnea on exertion. Psychiatric/Behavioral: Positive for memory loss. All other systems reviewed and are negative. [facility] Evaluation note Note Date & Type Note Facility Evaluation note No assessment information availa [facility] Work Phone: Evaluation note Note Date & Type Note Facility Evaluation note Diagnosis CHRISTOPHER (obstructive sleep apnea)- Primary Obstructive sleep apnea (adult) (pediatric) Hypersomnia Hypersomnia, unspecified PLMD (periodic limb movement disorder) Periodic limb movement disorder Inadequate sleep hygiene Other specific disorder of sleep of nonorganic origin Snoring Other dyspnea and respiratory abnormality Atrial flutter, unspecified type (CMS/HCC) documented in this encounter [facility] Summary Purpose Family History No Family History Records Found Relationship Condition Age at Onset Recorded Date/T lucretia father Malignant neoplasm Unknown Myocardial infarction Unknown High blood cholesterol Unknown Advance Directives No Advanced Directives Records Found Advance Directive Response Recorded Date/ Time Advance Directives No January 30 2:24pm Chief Complaint and Reason for Visit Chief Complaint Cough, Congestion Additional Source Comments (unrecognized sect ion and content) No Status Records FoundNo Status Records FoundNo Status Records Found INFORMATION SOURCE (unrecogn ized section and content) DATE CREATED AUTHOR 08/08/2022 [facility] DATE CREATED AUTHOR AUTHOR'S ORGANIZ ATION 08/07/2024 [facility] DATE CREATED AUTHOR AUTHOR'S ORGANIZ ATION 09/08/2024 [facility] Care Teams (unrecognized sec tion and content) Team Status: Active Member Role Status Dates Shaikh Drew MD Primary Care Provider Active Team Status: Inactive Member Role Status Dates Vivian Shannon APRN Attending Provider Active Start: January 31, 2024 End: January 31, 2024 Shaikh Drew MD Primary Care Provider Active Start: January 31, 2024 End: January 31, 2024 [facility] Relationship Specialty Start Date End Date Shaikh Russell MD [address] [place] [address] PCP - General Internal Medicine 03/12/24 Allergy And Immunology Specialist Relationship Specialty Start Date End Date Shaikh Russell MD [address] [place] [address] PCP - General Internal Medicine 03/12/24 Goals (unrecognized section and content) Goals may be documented in a n alternate section Reason for Visit (unrecogniz ed section and content) Reason Comments Sleep Apnea hypersomnia FOR RECORDS PERTAINING TO PATIENTS WHO ARE OR HAVE BEEN ENROLLED IN A CHEMICAL DEPENDENCY/SUBSTANCEABUSE PROGRAM, SOME INFORMATION MAY BE OMITTED. This clinical summary was aggregated from multiple sources. Caution should be exercised in using it in the provision of clinical care. This summary normalizes information from multiple sources, and as a consequence, information in this document may materially change the coding, format and clinical context of patient data. In addition, data may be omitted in some cases. CLINICAL DECISIONS SHOULD BE BASED ON THE PRIMARY CLINICAL RECORDS. [facility] [employer] [facility] provides no warranty or guarantee of the accuracy or completeness of information in this document.
[2025-07-01 12:24] LABS: Cholesterol 177 mg/dL (<=200); HDL Cholesterol 54 mg/dL (40-60); Triglycerides 53 mg/dL (<=150); VLDL CHOLESTEROL 10.6 mg/dL
== END 2025-07-01 11:48 | disposition home or self-care (01) ==
LOC: LAB 11:48
PROVIDERS: PCP Psychiatry & Neurology Neurology; Visit Provider Radiology Diagnostic Radiology
DX: E78.2 Mixed hyperlipidemia (principal)
CPT/HCPCS: 36415; 80061